=== PATIENT | female | born 1935 | race Caucasian/White ===

== ENCOUNTER 2018-07-30 09:28 | Inpatient (IN) ==
--- NOTE | 2018-07-30 09:53 | ED ---
HPI General Chief Complaint: Neuro Symptoms/Deficit Stated Complaint: neuro Time Seen by Provider: 07/30/18 09:34 Source: patient Mode of arrival: ambulatory Limitations: no limitations History of Present Illness HPI Narrative: The patient is a 82-year-old female who presents to the emergency department via private vehicle for dysarthria and difficulty reading. The states that they are from [place], [place], and are currently in area staying at a local hotel. The patient was last seen normal last night at 8 PM, she went to bed because she was "tired ". The states he woke up this morning the patient was in the shower, when she got out of the shower he noticed that the patient's speech was slightly slurred and she had difficulty getting words "out ". The patient also states that she has difficulty reading, has difficulty comprehending the words, no previous history of similar symptoms. The states the patient has slightly improved with her speech, however, it is still slow and slightly "garbled ". The patient does have a history of atrial fibrillation for which she takes aspirin, denies taking any other anticoagulants. Symptoms are moderate. The patient does have a history of hyperlipidemia, atrial fibrillation, but denies any known history of hypertension, diabetes, or tobacco use. Onset (ago): hour(s) Time: 10:05 Last Observed Normal: 20:00 Timing confirmed by: spouse Location: Reports speech and dysarthria History of same: No Severity: moderate Quality: Reports improving Relieving factors: none Exacerbating factors: none Context: Reports other On Anticoagulants: Yes (Aspirin) Associated symptoms: Reports other Treatments Prior to Arrival: Reports none Related Data Home Medications Medication Instructions Recorded Confirmed atorvastatin 40 mg PO QPM 07/30/18 07/30/18 carvedilol [Coreg] 6.25 mg PO BID 07/30/18 07/30/18 meloxicam [Mobic] 15 mg PO DAILY PRN 07/30/18 07/30/18 ranitidine HCl [Zantac] 150 mg PO DAILY PRN 07/30/18 07/30/18 rivaroxaban [Xarelto] 20 mg PO DAILY 07/30/18 07/30/18 Allergies Allergy/AdvReac Type Severity Reaction Status Date / Time azithromycin Allergy Hives Verified 07/30/18 09:39 Penicillins Allergy Hives Verified 07/30/18 09:39 Review of Systems ROS: all other systems reviewed are negative [facility] Social History Social History Substance History: No History of Abuse Smoking Status: Former smoker How Often Do You Have a Drink Containing Alcohol: 2 to 4 times a month Recent Out of Country Travel within the Last 8 Weeks: No Exam Narrative Exam Narrative: GENERAL: Awake, alert, pleasant 82-year-old female who appears her stated age and is in no acute respiratory distress. SKIN: Focused skin assessment warm/dry. HEAD: Atraumatic. Normocephalic. EYES: Pupils equal and round. 3 mm bilateral and reactive. EOMs are intact. Patient is wearing glasses. ENT: No nasal bleeding or discharge. Mucous membranes pink and moist. NECK: Trachea midline. No JVD. CARDIOVASCULAR: Regular rate and rhythm. No murmur appreciated. Heart rate in the 70s. RESPIRATORY: No accessory muscle use. Clear to auscultation. Breath sounds equal bilaterally. GASTROINTESTINAL: Abdomen soft, non-tender, nondistended. MUSCULOSKELETAL: No obvious deformities. No clubbing. No cyanosis. No edema. NEUROLOGICAL: Awake and alert. Smile is symmetric. EOMs are intact. Visual maldonado appear symmetric. Patient is able to see fingers at a distance of 2 feet without difficulty. No drift of the upper or lower extremities. Finger to nose is normal. Heel to [place] is normal. Sensation is symmetric on the face , arms, and legs. Mild dysarthria with slow carroll of the patient speech, she was unable to read my badge. PSYCHIATRIC: Appropriate mood and affect; insight and judgment normal. Course Initial Documented Vital Signs Temperature 98.1 F 07/30/18 09:29 Pulse Rate 63 07/30/18 09:29 Respiratory Rate 17 07/30/18 09:29 Blood Pressure 190/73 H 07/30/18 09:29 Pulse Oximetry 93 L 07/30/18 09:29 Last Documented Vital Signs Temperature 98.1 F 07/30/18 09:29 Pulse Rate 54 L 07/30/18 11:00 Respiratory Rate 20 07/30/18 11:00 Blood Pressure 151/67 H 07/30/18 11:00 Pulse Oximetry 97 07/30/18 11:00 NIH Stroke Scale NIHSS Time Completed NIHSS Time Completed: 09:45 NIH Stroke Scale Level of Consciousness: 0-Alert Orientation Questions: 0-Answers both correct Responds to Commands: 0-Both tasks correct Gaze Eye Movement: 0-Horizontal movement WNL Visual Maldonado: 0-No visual field defect Facial Movement: 0-Normal Motor Functions Arm LEFT: 0-No drift Motor Functions Arm RIGHT: 0-No drift Motor Functions Leg LEFT: 0-No drift Motor Functions Leg RIGHT: 0-No drift Limb Ataxia: 0-No ataxia Sensory Loss: 0-No sensory loss Best Language: 1-Mild aphasia Articulation: 1-Mild dysarthia Extinction or Inattention Sensory: 0-Absent Total: 2 Medical Decision Making MDM Narrative Medical decision making narrative: IV was established, labs are drawn and sent, the patient was placed on cardiac telemetry monitoring and continuous pulse oximetry monitoring. A stroke alert was called, the patient is a wakeup, stroke scale was 2, but does have mild dysarthria and mild aphasia with difficulty getting words out. Therefore, I discussed the patient with Dr. Jain , the on-call neurologist, who agrees with CT and CTA of the head and neck. I also discussed the patient with interventional radiologist, Dr. Saucedo, the patient stroke scale is 2, we will hold on CT perfusion until CTA is performed to see if there is a large clot that can be treated by interventional radiology. CTA was negative for large clot, she still had mild dysarthria, however, the states it is slightly improving. The patient was previously on Eliquis, however, developed a UTI, was placed on antibiotics, and subsequently developed colitis with bleeding. The patient was then taken off of Eliquis at that time. The patient may need further anticoagulation for history of atrial fibrillation, which appears to be paroxysmal, she just apparently had a TIA/CVA. The patient will be admitted. The patient had a UTI , therefore, was administered Cipro as she has hives with penicillins. The patient was also administered aspirin. I discussed the findings with the family and patient at bedside. Medical Screen Exam Complete: Yes Emergency Medical Condition: Yes Differential Diagnosis Differential Diagnosis: Differential diagnosis includes CVA, TIA, intracranial hemorrhage, hypertensive urgency, hypertensive emergency, transient neurologic deficit. Lab Data Result diagrams: 07/30/18 09:50 07/30/18 09:50 Lab Results 07/30/18 07/30/18 07/30/18 Range/Units 09:50 09:50 09:50 WBC 6.7 (4.0-11.0) th/mm3 RBC 4.29 (4.00-5.30) mil/mm3 Hgb 13.0 (11.6-15.3) gm/dL POC Hgb (Calc) 12.9 (11.6-15.3) g/dL Hct 38.8 (35.0-46.0) % POC Hct 38.0 (35-46.0) % MCV 90.5 (80.0-100.0) fL MCH 30.3 (27.0-34.0) pg MCHC 33.5 (32.0-36.0) % RDW 14.6 (11.6-17.2) % Plt Count 202 (150-450) th/mm3 MPV 7.8 (7.0-11.0) fL Neut % (Auto) 59.3 (16.0-70.0) % Lymph % (Auto) 29.2 (9.0-44.0) % [place] % (Auto) 7.7 (0.0-8.0) % Eos % (Auto) 3.5 (0.0-4.0) % Baso % (Auto) 0.3 (0.0-2.0) % Neut # (Auto) 4.0 (1.8-7.7) th/mm3 Lymph # (Auto) 2.0 (1.0-4.8) th/mm3 [place] # (Auto) 0.5 (0.0-0.9) th/mm3 Eos # (Auto) 0.2 (0.0-0.4) th/mm3 Baso # (Auto) 0.0 (0.0-0.2) th/mm3 WBC Differential . Differential Comment Auto diff final PT 10.7 (9.8-11.6) sec INR 1.1 Ratio APTT 25.2 (23.4-31.7) sec POC Sodium 145 H (137-144) mmol/L Sodium 144 (136-145) meq/L POC Potassium 3.8 (3.6-5.0) mmol/L Potassium 3.9 (3.5-5.1) meq/L POC Chloride 109 (102-111) mmol/L Chloride 112 H (98-107) meq/L Carbon Dioxide 23.2 (21.0-32.0) meq/L Anion Gap 9 (5-15) meq/L POC BUN 21 (5-21) mg/dL BUN 20 H (7-18) mg/dL Creatinine 0.65 (0.50-1.00) mg/dL POC Creatinine 0.6 (0.6-1.3) mg/dL Estimated GFR 88 L (>89) mL/min POC Glucose 128 H (68-110) mg/dL Random Glucose 121 H (74-106) mg/dL Calcium 9.4 (8.5-10.1) mg/dL Total Bilirubin 0.5 (0.2-1.0) mg/dL AST 14 L (15-37) U/L ALT 21 (10-53) U/L Alkaline Phosphatase 42 L (45-117) U/L Total Creatine Kinase 80 (26-192) U/L Troponin I Less than 0.02 L (0.02-0.05) ng/mL Total Protein 7.3 (6.4-8.2) g/dL Albumin 3.7 (3.4-5.0) g/dL Urine Color (Yellw/Straw) Urine Clarity (Clear) Urine pH (5.0-8.5) Ur Specific [place] (1.002-1.035) Urine Protein (Neg-Trace) mg/dL Urine Glucose (UA) (Negative) mg/dL Urine Ketones (Negative) mg/dL Urine Occult Blood (Negative) Urine Nitrate (Negative) Urine Bilirubin (Negative) Urine Urobilinogen (Less than 2) mg/dL Ur Leukocyte Esterase (Negative) Urine RBC (0-3) /hpf Urine WBC (0-5) /hpf Urine Bacteria (None) /hpf Hyaline Casts (0-3) /lpf Micro UA Comment Ur Microscopic Review Urine Culture Comments 07/30/18 Range/Units 11:27 WBC (4.0-11.0) th/mm3 RBC (4.00-5.30) mil/mm3 Hgb (11.6-15.3) gm/dL POC Hgb (Calc) (11.6-15.3) g/dL Hct (35.0-46.0) % POC Hct (35-46.0) % MCV (80.0-100.0) fL MCH (27.0-34.0) pg MCHC (32.0-36.0) % RDW (11.6-17.2) % Plt Count (150-450) th/mm3 MPV (7.0-11.0) fL Neut % (Auto) (16.0-70.0) % Lymph % (Auto) (9.0-44.0) % [place] % (Auto) (0.0-8.0) % Eos % (Auto) (0.0-4.0) % Baso % (Auto) (0.0-2.0) % Neut # (Auto) (1.8-7.7) th/mm3 Lymph # (Auto) (1.0-4.8) th/mm3 [place] # (Auto) (0.0-0.9) th/mm3 Eos # (Auto) (0.0-0.4) th/mm3 Baso # (Auto) (0.0-0.2) th/mm3 WBC Differential Differential Comment PT (9.8-11.6) sec INR Ratio APTT (23.4-31.7) sec POC Sodium (137-144) mmol/L Sodium (136-145) meq/L POC Potassium (3.6-5.0) mmol/L Potassium (3.5-5.1) meq/L POC Chloride (102-111) mmol/L Chloride (98-107) meq/L Carbon Dioxide (21.0-32.0) meq/L Anion Gap (5-15) meq/L POC BUN (5-21) mg/dL BUN (7-18) mg/dL Creatinine (0.50-1.00) mg/dL POC Creatinine (0.6-1.3) mg/dL Estimated GFR (>89) mL/min POC Glucose (68-110) mg/dL Random Glucose (74-106) mg/dL Calcium (8.5-10.1) mg/dL Total Bilirubin (0.2-1.0) mg/dL AST (15-37) U/L ALT (10-53) U/L Alkaline Phosphatase (45-117) U/L Total Creatine Kinase (26-192) U/L Troponin I (0.02-0.05) ng/mL Total Protein (6.4-8.2) g/dL Albumin (3.4-5.0) g/dL Urine Color Straw (Yellw/Straw) Urine Clarity Clear (Clear) Urine pH 7.0 (5.0-8.5) Ur Specific [place] 1.023 (1.002-1.035) Urine Protein Negative (Neg-Trace) mg/dL Urine Glucose (UA) Negative (Negative) mg/dL Urine Ketones Negative (Negative) mg/dL Urine Occult Blood Small H (Negative) Urine Nitrate Positive H (Negative) Urine Bilirubin Negative (Negative) Urine Urobilinogen Less than 2 (Less than 2) mg/dL Ur Leukocyte Esterase Large H (Negative) Urine RBC 2 (0-3) /hpf Urine WBC 38 H (0-5) /hpf Urine Bacteria Few H (None) /hpf Hyaline Casts 1 (0-3) /lpf Micro UA Comment Culture indicated Ur Microscopic Review Not Reportable Urine Culture Comments Culture indicated Imaging Data Radiologist's impression: Chest CT 07/30/18 00:00 CONCLUSION: 1. The lungs are clear. A few calcified granulomas are identified. 2. There is a small amount of air identified in the left brachiocephalic vein. Head CT 07/30/18 09:50 CONCLUSION: 1. Negative CT Head non contrast. Report was called by Dr. Villarreal to Dr. Collier at 10:10 AM on July 30, 2017.] Head CTA 07/30/18 09:50 CONCLUSION: 1. Patent intracranial circulation without evidence for aneurysm or high-grade stenosis. 2. 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 3. Thyroid nodules are described above. 4. Findings discussed with Dr. Jain at 10:30 AM on July 30, 2018. Neck CTA 07/30/18 09:50 CONCLUSION: 1. No evidence for high-grade stenosis. 2. 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 3. The findings were discussed with Dr. Jain at 10:30 AM on July 30, 2018. ECG Data EKG Prior to Arrival: No Attestation: I personally reviewed and interpreted this ECG as follows: Interpretation: EKG reveals sinus rhythm with first-degree AV block, KS interval [address] elevations or depressions noted. Discharge Plan Discharge Disposition Patient Disposition: ED Admit(ED Internal Use Only) Discharge Condition Condition: Stable Discharge Details Diagnosis: Acute CVA (cerebrovascular accident), Dysarthria Physicians Team ED Provider: Kalen Collier Primary Care Provider: UNKNOWN, Rxs /Orders / Referrals /Forms Prescriptions: No Action ranitidine HCl [Zantac] 150 mg Tablet 150 mg PO DAILY PRN (Reason: Heartburn) RF: 0 atorvastatin 40 mg Tablet 40 mg PO QPM RF: 0 carvedilol [Coreg] 6.25 mg Tablet 6.25 mg PO BID RF: 0 meloxicam [Mobic] 15 mg Tablet 15 mg PO DAILY PRN (Reason: Pain) RF: 0 rivaroxaban [Xarelto] 20 mg Tablet 20 mg PO DAILY RF: 0 Discharge Interventions Interventions: Vital Signs Last Done: 07/30/18 11:00 Status ED Status: Pending Admission
[2018-07-30 10:11] LABS: Baso % (Auto) 0.3 % (0.0-2.0); Eos # (Auto) 0.2 th/mm3 (0.0-0.4); Eos % (Auto) 3.5 % (0.0-4.0); Hematocrit 38.8 % (35.0-46.0); Lymph % (Auto) 29.2 % (9.0-44.0); Mean Corpuscular HGB Conc 33.5 % (32.0-36.0); Mean Corpuscular Hemoglobin 30.3 pg (27.0-34.0); Mean Corpuscular Volume 90.5 fL (80.0-100.0); Mean Platelet Volume 7.8 fL (7.0-11.0); Mono # (Auto) 0.5 th/mm3 (0.0-0.9); Mono % (Auto) 7.7 % (0.0-8.0); Neut % (Auto) 59.3 % (16.0-70.0); Platelet Count 202 th/mm3 (150-450); Red Blood Count 4.29 mil/mm3 (4.00-5.30); Red Cell Distribution Width 14.6 % (11.6-17.2); White Blood Count 6.7 th/mm3 (4.0-11.0)
--- NOTE | 2018-07-30 10:12 | CT ---
EXAM DATE: 07/30/2018 10:07 AM EST AGE/SEX: 82 years / Female INDICATIONS: Stroke alert, dysarthria, mild aphasia. CLINICAL DATA: This is the patient's initial encounter. Patient reports that signs and symptoms have been present for 1 day and indicates a pain score of Nonresponsive. MEDICAL/SURGICAL HISTORY: Non-responsive. Non-responsive. RADIATION DOSE: 37.58 CTDI (mGy) COMPARISON: No prior exams available for comparison. TECHNIQUE: CT of the head without contrast. Using automated exposure control and adjustment of the mA and/or kV according to patient size, radiation dose was kept as low as reasonably achievable to ob tain optimal diagnostic quality images. DICOM format image data is available electronically for revi ew and comparison. FINDINGS: Cerebrum: The ventricles are normal for age. No evidence of midline shift, mass lesion, hemorrhage or acute infarction. No extraaxial fluid collections are seen. Posterior Fossa: The cerebellum and brainstem are intact. The 4th ventricle is midline. The cerebe llopontine angle is unremarkable. Extracranial: The visualized portion of the orbits is intact. Skull: The calvaria is intact. No evidence of skull fracture. CONCLUSION: 1. Negative CT Head non contrast. Report was called by Dr. Villarreal to Dr. Collier at 10:10 AM on July 30, 2017.] Electronically signed by: Herbie Villarreal MD Board Certified Radiologist 07/30/2018 10:11 AM EST
[2018-07-30 10:18] LABS: Activated Partial Thrombo Time 25.2 sec (23.4-31.7); INR 1.1 Ratio; Prothrombin Time 10.7 sec (9.8-11.6)
[2018-07-30 10:23] LABS: Albumin 3.7 g/dL (3.4-5.0); Anion Gap 9 meq/L (5-15); Aspartate Aminotransferase 14 U/L (15-37); Blood Urea Nitrogen 20 mg/dL (7-18); Calcium 9.4 mg/dL (8.5-10.1); Carbon Dioxide 23.2 meq/L (21.0-32.0); Chloride 112 meq/L (98-107); Glomerular Filtration Rate 88 mL/min (>89); Glucose,Random 121 mg/dL (74-106); Potassium 3.9 meq/L (3.5-5.1); Sodium 144 meq/L (136-145)
[2018-07-30 10:24] LABS: Alanine Aminotransferase 21 U/L (10-53)
[2018-07-30 10:27] LABS: Alkaline Phosphatase 42 U/L (45-117); Total Protein 7.3 g/dL (6.4-8.2)
[2018-07-30 10:32] LABS: Creatine Kinase 80 U/L (26-192)
--- NOTE | 2018-07-30 10:35 | CT ---
EXAM DATE: 07/30/2018 10:24 AM EST AGE/SEX: 82 years / Female INDICATIONS: Stroke alert. Dysarthria. Mild aphasia. CLINICAL DATA: This is the patient's initial encounter. Patient reports that signs and symptoms have been present for 1 day and indicates a pain score of 0/10. MEDICAL/SURGICAL HISTORY: None. None. RADIATION DOSE: 26.20 CTDI (mGy) ; Combined studies COMPARISON: [facility] [place], CT HEAD W/O CONTRAST, 07/30/2018. . TECHNIQUE: Volumetric scanning was performed using a multi-row detector CT scanner during bolus infu sandoval of 100 ml Visipaque 320 (iodixanol) nonionic water-soluble contrast as a cumulative dose for mu ltiple exams. The data was post processed with a variety of visualization algorithms including full volume maximum intensity projection, multi-planar sliding thin slab reformation, curved planar refor mation, and surface rendering techniques. Using automated exposure control and adjustment of the mA and/or kV according to patient size, radiation dose was kept as low as reasonably achievable to obtai n optimal diagnostic quality images. DICOM format image data is available electronically for review and comparison. FINDINGS: There is excellent visualization of the major intracranial arteries out to the second-order branch ve ssels. There is no evidence for aneurysm, vessel truncation or stenosis, and no evidence for vascula r malformation. Bilateral thyroid nodules are noted including a hypodense 9.5 mm nodule on the right and an enhancing 7 mm nodule on the left. On axial image 66 of series 301.4 x 0.8 cm hyperdense circumscribed mass is present in the spinal can al posterior to C2 demonstrating mass effect on the spinal cord. This appears intradural and extramed ullary. I believe it is calcified. CONCLUSION: 1. Patent intracranial circulation without evidence for aneurysm or high-grade stenosis. 2. 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 3. Thyroid nodules are described above. 4. Findings discussed with Dr. Jain at 10:30 AM on July 30, 2018. Electronically signed by: Herbie Villarreal MD Board Certified Radiologist 07/30/2018 10:33 AM EST
--- NOTE | 2018-07-30 11:05 | CT ---
EXAM DATE: 07/30/2018 10:31 AM EST AGE/SEX: 82 years / Female INDICATIONS: Stroke alert. Dysarthria. Mild aphasia. CLINICAL DATA: This is the patient's initial encounter. Patient reports that signs and symptoms have been present for 1 day and indicates a pain score of 0/10. MEDICAL/SURGICAL HISTORY: None. None. RADIATION DOSE: 26.20 CTDI (mGy) ; Combined studies COMPARISON: No prior exams available for comparison. TECHNIQUE: Volumetric scanning was performed using a multirow detector CT scanner during bolus infus ion of 100 ml Visipaque 320 (iodixanol) nonionic water-soluble contrast as a cumulative dose for mul tiple exams. The data was postprocessed with a variety of visualization algorithms including full-v olume maximum intensity projection, multiplanar sliding thin-slab reformation, curved-planar reformat ion, and surface-rendering techniques. Using automated exposure control and adjustment of the mA and /or kV according to patient size, radiation dose was kept as low as reasonably achievable to obtain o ptimal diagnostic quality images. DICOM format image data is available electronically for review and comparison. Percent stenosis is calculated using the diameter of the stenotic region over the diameter of the nor mal distal internal carotid artery. FINDINGS: There is a hypodense subcentimeter right thyroid nodule, as well as a hyperdense left thyr oid nodule noted. There is a dense extra-axial mass in the spinal canal at the C2 level, incompletely evaluated on this study. Aortic Arch: There is a three-vessel origin of the great vessels from the aorta. No evidence of ost ial narrowing Right Carotid: The common carotid artery is intact. The carotid bulb has a normal configuration wit hout ulceration or narrowing. The internal carotid artery lumen is smooth without stenosis. The ext ernal carotid artery is intact. Left Carotid: The common carotid artery is intact. The carotid bulb has a normal configuration with out ulceration or narrowing. The internal carotid artery lumen is smooth without stenosis. The exte rnal carotid artery is intact. Vertebrals: The vertebral arteries have a symmetric diameter. No stenotic lesions are seen. CONCLUSION: 1. No evidence for high-grade stenosis. 2. 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 3. The findings were discussed with Dr. Jain at 10:30 AM on July 30, 2018. Electronically signed by: Herbie Villarreal MD Board Certified Radiologist 07/30/2018 11:04 AM EST
--- NOTE | 2018-07-30 11:36 | CT ---
EXAM DATE: 07/30/2018 11:19 AM EST AGE/SEX: 82 years / Female INDICATIONS: Evaluate for possible source of air seen on prior study. CLINICAL DATA: This is the patient's initial encounter. Patient reports that signs and symptoms have been present for 1 day and indicates a pain score of Nonresponsive. MEDICAL/SURGICAL HISTORY: Non-responsive. Non-responsive. RADIATION DOSE: 13.25 CTDI (mGy) COMPARISON: No prior exams available for comparison. TECHNIQUE: Multiple contiguous axial images were obtained through the chest without contrast. Image s were obtained in suspended respiration using multiple row detector helical technique. Using automa cameron exposure control and adjustment of the mA and/or kV according to patient size, radiation dose was kept as low as reasonably achievable to obtain optimal diagnostic quality images. DICOM format imag e data is available electronically for review and comparison. FINDINGS: There are mild dependent atelectatic changes seen. There are no effusions. There is a calcified granu julita in the right middle lobe present measuring 5 mm. There is a calcified granuloma in the right upp er lobe medially measuring 3.9 mm. There is a small amount of air in the left brachiocephalic vein pr esent. Atherosclerotic calcification of the aorta and coronary arteries. Calcified splenic granulomas and calcified subcentimeter subcarinal lymph node present. Osseous structures are intact. CONCLUSION: 1. The lungs are clear. A few calcified granulomas are identified. 2. There is a small amount of air identified in the left brachiocephalic vein. Electronically signed by: Herbie Villarreal MD Board Certified Radiologist 07/30/2018 11:34 AM EST
[2018-07-30 12:07] LABS: Bacteria,Urine Few /hpf; Bilirubin,Urine Negative (Negative); Clarity,Urine Clear (Clear); Color,Urine Straw (Yellw/Straw); Glucose,Urine (UA) Negative (Negative); Hyaline Casts,Urine 1 /lpf (0-3); Leukocyte Esterase,Urine Large (Negative); Nitrite,Urine Positive (Negative); Specific Gravity,Urine 1.023 (1.002-1.035)
[2018-07-30] MEDS ORDERED: Ciprofloxacin 400 MG/200 ML 400 MG/200 ML PIGGYBACK IV.SIG ONE (12:13)
[2018-07-30] MEDS ORDERED: Aspirin 325 MG Tablet PO ONE (12:13)
[2018-07-30] MEDS: Sod Chloride 0.9% Inj 1,000 ML IV.CONT SCH ×2 (13:45→20:56)
[2018-07-30] MEDS ORDERED: Famotidine 20 MG Tablet PO PRN (13:49)
--- NOTE | 2018-07-30 13:55 | P.HPIM ---
History of Present Illness Primary Care Physician: UNKNOWN Chief Complaint: Speech Difficulty History of Present Illness: Mrs. Burger is an 82 year old female. She is a past medical history of atrial fibrillation for which she is on Xarelto chronically for. Today she came in because she woke and noticed she was having difficulty speaking and reading. Symptoms have improved but are persisting. CT imaging shows no evidence of hemorrhage. Ischemic CVA is still suspected. Alternatively she has a urinary tract infection which could contribute to an encephalopathic type of picture, though confusion is not part of her current symptoms. No previous history of CVA. She does have a previous history of UTI and C. difficile colitis. Inpatient Certification Inpatient Certification: I certify that the inpatient services were ordered in accordance with Medicare regulations governing the order. This includes certification that hospital inpatient services are reasonable and necessary and in the case of services not specified as inpatient-only under 42 CFR 419.22(n), that they are appropriately provided as inpatient services in accordance to with the 2-midnight benchmark under 43 CFR 412.3(e) Estimated Total Length of Stay (Days): 3 Plans for Post Hospital Care: Home Review of Systems Constitutional: No fevers, no chills no night sweats, no fatigue, no weakness Eyes: No eye pain, no blurry vision, no loss of vision ENT: No sore throat, no ear pain, no rhinorrhea Cardiovascular: No chest pain, no tachycardia, no palpitations, no syncope Respiratory: No wheezing, no cough, no shortness of breath Gastrointestinal: No abdominal pain, no black tarry stools, no bright red blood per rectum, no vomiting, no diarrhea Musculoskeletal: No joint pain, no muscle cramps, no stiffness Integumentary: No rash, no ulcers, no drainage Neurologic: No sensory loss, no loss of motor function, no dizziness, dysarthria , aphasia Psychiatric: No behavioral changes, no hallucinations, no suicidal ideations PMFSH Family History Family History Other Osteoarthritis Social History Social History Substance History: No History of Abuse Smoking Status: Former smoker How Often Do You Have a Drink Containing Alcohol: 2 to 4 times a month Recent Out of Country Travel within the Last 8 Weeks: No Immunization History Tetanus Immunization: Unsure Medications and Allergies Allergies Allergy/AdvReac Type Severity Reaction Status Date / Time azithromycin Allergy Hives Verified 07/30/18 09:39 Penicillins Allergy Hives Verified 07/30/18 09:39 Home Medications Medication Instructions Recorded Confirmed Type atorvastatin 40 mg PO QPM 07/30/18 07/30/18 History carvedilol [Coreg] 6.25 mg PO BID 07/30/18 07/30/18 History meloxicam [Mobic] 15 mg PO DAILY PRN 07/30/18 07/30/18 History ranitidine HCl [Zantac] 150 mg PO DAILY PRN 07/30/18 07/30/18 History rivaroxaban [Xarelto] 20 mg PO DAILY 07/30/18 07/30/18 History Active Medications: Active Medications Acetaminophen (Tylenol) 650 mg PO Q4H PRN PRN Reason: Temp > 100.4 Al Hydroxide/Mg Hydroxide (Milk Of Javi Gallardo) 30 ml PO Q12H PRN PRN Reason: Mild Constipation Sodium Chloride (Ns Inj) 1,000 mls @ 70 mls/hr IV.CONT .[id number] GINA Last Admin: 07/30/18 13:45 Dose: 70 mls/hr Ondansetron HCl (Zofran Inj) 4 mg IV.PUSH Q6H PRN PRN Reason: NAUSEA OR VOMITING Sodium Chloride (Ns Flush) 2 ml IV.FLUSH BID [facility] Sodium Chloride (Ns Flush) 2 ml IV.FLUSH PRN PRN PRN Reason: FLUSH AFTER USING IV ACCESS Physical Exam Vital signs: Vital Signs 07/30/18 09:29 07/30/18 10:14 07/30/18 11:00 Temperature 98.1 F Pulse Rate 63 62 54 L Respiratory Rate 17 16 20 Blood Pressure 190/73 H 166/65 H 151/67 H Pulse Oximetry 93 L 98 97 Intake & Output 07/29/18 07/30/18 07/30/18 18:59 06:59 18:59 Intake Total 200 / 200 Balance 200 / 200 Weight 73.2 kg Intake: IV 200 / 200 Cipro 400 MG/200 ML Inj 400 mg 200 / 200 In 200 ml @ 200 mls/hr IV.SIG ONCE ONE Rx#:[id number] Narrative: GENERAL: NAD, A&Ox3 HEAD: Normocephalic. NECK: Supple, trachea midline. No lymphadenopathy. EYES: No scleral icterus. No injection or drainage. CARDIOVASCULAR: Regular rate and rhythm without murmurs, gallops, or rubs. RESPIRATORY: Breath sounds equal bilaterally. No accessory muscle use. GASTROINTESTINAL: Abdomen soft, non-tender, nondistended. MUSCULOSKELETAL: No cyanosis, or edema. SKIN: Warm and dry. NEURO: Dysarthria and aphasia of speech Results Labs CBC & Chem 7: 07/30/18 09:50 07/30/18 09:[address] 07/30/18 00:00 CONCLUSION: 1. The lungs are clear. A few calcified granulomas are identified. 2. There is a small amount of air identified in the left brachiocephalic vein. Head CT 07/30/18 09:50 CONCLUSION: 1. Negative CT Head non contrast. Report was called by Dr. Villarreal to Dr. Collier at 10:10 AM on July 30, 2017.] Head CTA 07/30/18 09:50 CONCLUSION: 1. Patent intracranial circulation without evidence for aneurysm or high-grade stenosis. 2. 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 3. Thyroid nodules are described above. 4. Findings discussed with Dr. Jain at 10:30 AM on July 30, 2018. Neck CTA 07/30/18 09:50 CONCLUSION: 1. No evidence for high-grade stenosis. 2. 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 3. The findings were discussed with Dr. Jain at 10:30 AM on July 30, 2018. Caprini VTE Risk Assessment Caprini VTE Risk Assessment: Moderate/High Risk (score >= 2) Caprini Risk Assessment Model: Point Value = 1 Point Value = 2 Point Value = 3 Point Value = 5 Age 41-60 Minor surgery BMI > 25 kg/m2 Swollen legs Varicose veins or History of unexplained or recurrent spontaneous Oral contraceptives or hormone replacement Sepsis (< 1 month) Serious lung disease, including pneumonia (< 1 month) Abnormal pulmonary function Acute myocardial infarction Congestive heart failure (< 1 month) History of inflammatory bowel disease Medical patient at bed rest Age 61-74 Arthroscopic surgery Major open surgery (> 45 min) Laparoscopic surgery (> 45 min) Malignancy Confined to bed (> 72 hours) Immobilizing plaster cast Central venous access Age >= 75 History of VTE Family history of VTE Factor V Leiden Prothrombin [id number] Lupus anticoagulant Anticardiolipin antibodies Elevated serum homocysteine Heparin-induced thrombocytopenia Other congenital or acquired thrombophilia Stroke (< 1 month) Elective arthroplasty Hip, pelvis, or leg fracture Acute spinal cord injury (< 1 month) Prophylaxis Regimen: Total Risk Factor Score Risk Level Prophylaxis Regimen 0-1 Low Early ambulation 2 Moderate Order ONE of the following: *Sequential Compression Device (SCD) *Heparin 5000 units SQ BID 3-4 Higher Order ONE of the following medications: *Heparin 5000 units SQ TID *Enoxaparin/Lovenox 40 mg SQ daily (WT < 150 kg, CrCl > 30 mL/min) *Enoxaparin/Lovenox 30 mg SQ daily (WT < 150 kg, CrCl > 10-29 mL/min) *Enoxaparin/Lovenox 30 mg SQ BID (WT < 150 kg, CrCl > 30 mL/min) AND/OR *Sequential Compression Device (SCD) 5 or more Highest Order ONE of the following medications: *Heparin 5000 units SQ TID (Preferred with Epidurals) *Enoxaparin/Lovenox 40 mg SQ daily (WT < 150 kg, CrCl > 30 mL/min) *Enoxaparin/Lovenox 30 mg SQ daily (WT < 150 kg, CrCl > 10-29 mL/min) *Enoxaparin/Lovenox 30 mg SQ BID (WT < 150 kg, CrCl > 30 mL/min) AND *Sequential Compression Device (SCD) Assessment and Plan Plan 82-year-old female admitted secondary to suspected acute CVA with dysarthria and aphasia of speech. Urinary tract infection present. Acute CVA Dysarthria Aphasia No hemorrhage on CT No evidence of mass on CT Obtain MRI Carotid ultrasound study Echocardiogram Neurology consulted Follow with neuro checks Continue speech therapy Permissive hypertension, hold Coreg Atrial fibrillation Continue Xarelto Follow on telemetry Coreg on hold for now Hyperlipidemia Continue present treatment Follow as an outpatient Gastroesophageal reflux disease continue ranitidine DVT prophylaxis Xarelto
--- NOTE | 2018-07-30 14:38 | MB ---
cc: Brenda Jain MD DATE: 07/30/2018 REASON FOR CONSULTATION: Stroke. HISTORY OF PRESENT ILLNESS: This is an 82-year-old woman with a history of atrial fibrillation, apparently on Xarelto chronically, who came in because she woke up having some trouble speaking and reading. Her symptoms are improved, but not at baseline. CT showed nothing acute. She is not deemed a candidate for TPA due to waking up with symptoms and being also on Xarelto. The patient denies any numbness or tingling or weakness on any side of the body. PAST MEDICAL HISTORY: As stated of atrial fibrillation, probably paroxysmal, on Xarelto. SOCIAL HISTORY: Retired. Does not smoke. Former smoker. Drinks a couple times a month, maybe. MEDICATIONS AT HOME: Refer to her MAR. PHYSICAL EXAMINATION: VITAL SIGNS: Temperature is 98.1, heart rate 54, blood pressure 151/67, saturating at 97% on 2 liters nasal cannula. NECK: Supple. She seems to be in sinus rhythm currently. NEUROLOGIC: She is awake and alert, follows commands. Her pupils are reactive. Visual daniel are full. Her face is symmetrical. She has trouble repeating certain phrases for me. She could name, but she seemed more slurred when she named an object such as stethoscope. She still has trouble coming up with words, so there may be some question of possible mixed aphasia. At this point, it is not very clear. She does not have any drift or leg lag. Cerebellar testing normal. Sensory is normal. Gait is withheld. LABORATORY DATA: Laboratory are reviewed. Her CBC is normal. Coagulation panel is normal. Chemistries: Sodium is 144, potassium 3.9. GFR is 88. Glucose 121. Troponin less than 0.02. Urine is positive for nitrites, 38 white cells. Culture is pending. IMAGING STUDIES: Neck CTA shows no high-grade stenosis, possible extramedullary mass at C2, calcified. Head CTA: No aneurysm or high-grade stenosis. Again, a possible hyperdense mass in the spinal canal at C2, calcified. There are some nodules on the thyroid on the right as well as on the left. CT brain was unremarkable. IMPRESSION: Possible stroke. Certainly concerning would be this mass. It may be a meningioma. Would recommend getting an MRI of the brain as well as an MRI of the cervical spine with and without contrast. Get also a carotid ultrasound and echocardiogram. Verify that she does take Xarelto. If she does not, why. In the meantime, certainly, she can be maintained on it. Check a lipid panel. Sequential compression devices, physical therapy, occupational therapy, speech therapy and depending on findings, further recommendations. MD KIRT Manrique/zehra , 02:16 PM , 02:24 PM
--- NOTE | 2018-07-30 15:48 | MR ---
EXAM DATE: 07/30/2018 3:25 PM EST AGE/SEX: 82 years / Female INDICATIONS: Slurred speech. CLINICAL DATA: This is the patient's initial encounter. Patient reports that signs and symptoms have been present for 1 day and indicates a pain score of 0/10. MEDICAL/SURGICAL HISTORY: . Afib Hysterectomy. Cholecystectomy. Fusion, cervical. right hip replacement, parotid gland removed, bladder tacking COMPARISON: [facility], CTA HEAD W CONTRAST W 3D, 07/30/2018. . TECHNIQUE: Multiplanar, multisequence examination of the brain was performed without contrast. FINDINGS: Cerebrum: There is mild generalized atrophy with ventricular size within normal limits given the degr ee of atrophy. No midline shift, mass lesion, or hemorrhage. There is mild decreased FLAIR/T2 signal in the posterior left temporal lobe and the left posterior insular region. These areas are associate d with restricted diffusion. No extraaxial fluid collections are seen. The pituitary gland and supr asellar cistern are normal in configuration. White Matter: No significant signal abnormalities are seen in the white matter. Posterior Fossa: The cerebellum and brainstem demonstrate no acute abnormality. The 4th ventricle is midline. The cerebellopontine angle is within normal limits. The cerebellar tonsils are normal in p osition. Diffusion Imaging: There is restricted diffusion in the posterior left temporal lobe and left infantry senior sergeant ior insular region. The temporal lobe abnormality measures approximately 2.9 cm in maximal dimension. Extracranial: The visualized sinuses are clear. There is a partially visualized and evaluated ovoid mass in the cervical spinal canal measuring 2.0 x 0.9 cm. CONCLUSION: 1. Findings are diagnostic of recent ischemia in the left posterior temporal lobe and left posterior insula. No blood products are seen. 2. Partially visualized and evaluated intradural mass within the cervical spinal canal posterior to C2. It measures approximately 2.0 x 0.9 cm. Electronically signed by: Reuben Robbins MD Board Certified Radiologist 07/30/2018 3:46 PM EST
--- NOTE | 2018-07-30 15:51 | MR ---
EXAM DATE: 07/30/2018 3:24 PM EST AGE/SEX: 82 years / Female INDICATIONS: Slurred speech. CLINICAL DATA: This is the patient's initial encounter. Patient reports that signs and symptoms have been present for 1 day and indicates a pain score of 0/10. MEDICAL/SURGICAL HISTORY: . Afib Fusion, cervical. Hysterectomy. Cholecystectomy. right hip replacement, parotid gland removed, bladder tacking [place] [facility] [place]. . TECHNIQUE: 3D [id number] MRA was performed. Source images, multiplanar STS MIP, and 3D volum e MIP reconstructions were reviewed. FINDINGS: Anterior circulation: The intracranial aspects of the internal carotid arteries demonstrate no signif icant abnormality. Proximal ophthalmic arteries are visualized bilaterally. Right A1 segment is sligh tly larger than the left but both are patent. Anterior cerebral arteries are symmetric and within nor mal limits. The proximal middle cerebral arteries bilaterally are symmetric. There is slightly decrea sed flow related enhancement within the peripheral/distal middle cerebral artery branches in the post erior sylvian fissure region. This is located directly adjacent to the area of ischemia. Posterior circulation: Vertebral arteries are codominant. Basilar artery is within normal limits with out stenosis or aneurysm. Posterior cerebral arteries are symmetric. CONCLUSION: Mildly decreased flow-related enhancement within the very peripheral left middle cerebral artery bran ches in the posterior sylvian fissure region adjacent to the location of recent ischemia. No large ve ssel central occlusion is identified. Electronically signed by: Reuben Robbins MD Board Certified Radiologist 07/30/2018 3:50 PM EST
[2018-07-30] MEDS ORDERED: Gadobutrol PF 7.5 MMOL/7.5 ML Vial (for RAD) IV.SIG ONE (15:57)
--- NOTE | 2018-07-30 16:40 | MR ---
EXAM DATE: 07/30/2018 4:06 PM EST AGE/SEX: 82 years / Female INDICATIONS: . Abnormal CT. CLINICAL DATA: This is the patient's sequela encounter. Patient reports that signs and symptoms have been present for > 1 year and indicates a pain score of 0/10. MEDICAL/SURGICAL HISTORY: . Afib Fusion, cervical. Cholecystectomy. Hysterectomy. right hip replacement, parotid gland removed, bladder tacking COMPARISON: [facility], CTA NECK W CONTRAST W 3D, 07/30/2018. . TECHNIQUE: Multiplanar, multisequence MRI examination of the cervical spine was performed without an d with 7.5 ml Gadavist (gadobutrol) contrast as a single exam dose. FINDINGS: Vertebrae: Anterior fusion plate C5-6. Alignment: Normal. Cord: Normal configuration and signal. Post Fossa: The cerebellar tonsils are normal in position. Post Contrast: Homogeneous enhancing oval-shaped mass is seen posterior to C2 noted within the spina l canal external to the cord. This measures 1.9 x 0.9 x 1.4 cm. This is dark on T1-weighted sequences and intermediate on T2-weighted sequences. This does efface the left aspect of the cord at C1/C2 lev el causing mild canal stenosis. C2-C3: The thecal sac has a normal configuration. There is no evidence of disc herniation or spinal canal stenosis. The neural foramina are patent bilaterally. C3-C4: The thecal sac has a normal configuration. There is no evidence of disc herniation or spinal canal stenosis. The neural foramina are patent bilaterally. C4-C5: The thecal sac has a normal configuration. There is no evidence of disc herniation or spinal canal stenosis. The neural foramina are patent bilaterally. C5-C6: Anterior fusion. The thecal sac has a normal configuration. There is no evidence of disc her niation or spinal canal stenosis. The neural foramina are patent bilaterally. C6-C7: Posterior disc osteophyte complex abuts the ventral thecal sac without canal stenosis. The n eural foramina are patent bilaterally. C7-T1: No epidural impressions seen. CONCLUSION: 1. Intradural/extramedullary mass at C1/C2 level most consistent with meningioma. This does efface t he left ventral cord and causes mild canal stenosis. No cord edema. 2. Anterior fusion C5-6. Electronically signed by: José Manuel Reese MD Board Certified Radiologist 07/30/2018 4:38 PM EST
[2018-07-30] MEDS: Lactobacillus Acidophilus/L. Spores Tablet PO SCH (17:52)
--- NOTE | 2018-07-30 19:26 | ECHRPT ---
Indication: CVA/TIA CONCLUSIONS Normal left ventricular size. Wall thickness is normal. The left ventricular systolic function is normal with an estimated ejection fraction in the range of 55-60%. Trace mitral valve regurgitation. Trace aortic valve regurgitation. Mild pulmonary valve regurgitation. BP: / HR: Rhythm: MEASUREMENTS (Male / Female) Normal Values Technical Quality:Fair 2D ECHO LV Diastolic Diameter PLAX 4.5 cm 4.2 - 5.9 / 3.9 - 5.3 cm LV Systolic Diameter PLAX 3.4 cm IVS Diastolic Thickness 0.9 cm 0.6 - 1.0 / 0.6 - 0.9 cm LVPW Diastolic Thickness 0.9 cm 0.6 - 1.0 / 0.6 - 0.9 cm LV Relative Wall Thickness 0.4 RV Internal Dim ED PLAX 2.9 cm LVOT Diameter 2.3 cm Aortic Root Diameter 3.3 cm LA Systolic Diameter LX 3.2 cm 3.0 - 4.0 / 2.7 - 3.8 cm DOPPLER AV Peak Velocity 97.7 cm/s AV Peak Gradient 3.8 mmHg AI Peak Velocity 354.0 cm/s AI Peak Gradient 50.1 mmHg AI Pressure Half Time 748.0 ms LVOT Peak Velocity 85.7 cm/s LVOT Peak Gradient 2.9 mmHg AV Area Cont Eq pk 3.6 cm Mitral E Point Velocity 74.8 cm/s Mitral A Point Velocity 80.2 cm/s Mitral E to A Ratio 0.9 LV E' Lateral Velocity 7.3 cm/s Mitral E to LV E' Lateral Ratio 10.2 LV E' Septal Velocity 6.8 cm/s Mitral E to LV E' Septal Ratio 11.0 TR Peak Velocity 216.0 cm/s TR Peak Gradient 18.7 mmHg Right Atrial Pressure 10.0 mmHg Pulmonary Artery Systolic Pressu 28.7 mmHg Right Ventricular Systolic Press 28.7 mmHg PV Peak Velocity 64.8 cm/s PV Peak Gradient 1.7 mmHg FINDINGS LEFT VENTRICLE Normal left ventricular size. Wall thickness is normal. The left ventricular systolic function is normal with an estimated ejection fraction in the range of 55-60%. RIGHT VENTRICLE Normal right ventricular size and systolic function. LEFT ATRIUM The left atrial size is normal. RIGHT ATRIUM The right atrial size is normal. ATRIAL SEPTUM Normal atrial septal thickness without atrial level shunting by limited color doppler interrogation. AORTA The aortic root and proximal ascending aorta are normal in size on limited imaging. MITRAL VALVE Trace mitral valve regurgitation. AORTIC VALVE Trileaflet aortic valve. Trace aortic valve regurgitation. TRICUSPID VALVE Structurally normal tricuspid valve. No tricuspid valve stenosis or regurgitation. PULMONARY VALVE Mild pulmonary valve regurgitation. VESSELS The inferior vena cava is normal in size. PERICARDIUM No pericardial effusion. Emre Lopez MD, FACC (Electronically Signed) Final Date:30 July 2018 19:26
[2018-07-30] MEDS: Acetaminophen 325 MG Tablet PO PRN (20:49)
--- NOTE | 2018-07-31 00:39 | ECG ---
Date Performed: 07/30/2018 Time Performed: 09:43:13 PTAGE: 82 years EKG: Sinus rhythm WITH FIRST DEGREE AV BLOCK ABNORMAL ECG NO PREVIOUS TRACING DOCTOR: Mars Bernabe Interpretating Date/Time 07/31/2018 00:37:01
[2018-07-31] MEDS: Acetaminophen 325 MG Tablet PO PRN ×2 (04:35→11:16)
[2018-07-31] MEDS: Sod Chloride 0.9% Inj 1,000 ML IV.CONT SCH (04:36)
[2018-07-31] MEDS: Lactobacillus Acidophilus/L. Spores Tablet PO SCH ×2 (08:35→12:26)
[2018-07-31] MEDS ORDERED: Rivaroxaban 20 MG Tablet PO SCH (09:00)
--- NOTE | 2018-07-31 09:26 | P.PNIM ---
Subjective Interval history: f/u; CVA in no acute distress. resting comfortably. slurred speech has much improved although she says that ' she's still having a problem with finding words'. Physical Exam Vital signs: Vital Signs 07/30/18 09:29 07/30/18 10:14 07/30/18 11:00 Temperature 98.1 F Pulse Rate 63 62 54 L Respiratory Rate 17 16 20 Blood Pressure 190/73 H 166/65 H 151/67 H Pulse Oximetry 93 L 98 97 07/30/18 20:00 07/30/18 21:50 07/30/18 22:30 Temperature 98.4 F Pulse Rate 64 54 L Respiratory Rate 17 16 Blood Pressure 117/58 L Pulse Oximetry 95 07/31/18 00:00 07/31/18 04:00 07/31/18 05:54 Temperature 98.2 F 97.8 F Pulse Rate 57 L 57 L Respiratory Rate 18 19 16 Blood Pressure 112/55 L 122/53 L Pulse Oximetry 95 95 07/31/18 08:29 Temperature Pulse Rate Respiratory Rate 16 Blood Pressure Pulse Oximetry Intake & Output 07/30/18 07/31/18 07/31/18 18:59 06:59 18:59 Intake Total 200 / 200 1000 / 1000 Balance 200 / 200 1000 / 1000 Weight 73.2 kg 73.2 kg Intake: IV 200 / 200 1000 / 1000 NS Inj 1,000 ML @ 70 mls/hr IV. 1000 / 1000 CONT .[id number] PENDING SALE TO [facility] Rx#:[id number] Cipro 400 MG/200 ML Inj 400 mg 200 / 200 In 200 ml @ 200 mls/hr IV.SIG ONCE ONE Rx#:[id number] Other: # Voids 2 Constitutional no acute distress Routine Respiratory Exam Present CTA bilaterally Routine Cardiovascular Exam Present RRR Routine Abdominal Exam Present soft Routine Extremities Exam Comments: no pedal edema. Routine Neurological Exam Present alert and oriented X3 Results Labs CBC & Chem 7: 07/30/18 09:50 07/30/18 09:50 Imaging Imaging: Impressions Cervical Spine MRI 07/30/18 00:00 CONCLUSION: 1. Intradural/extramedullary mass at C1/C2 level most consistent with meningioma. This does efface the left ventral cord and causes mild canal stenosis. No cord edema. 2. Anterior fusion C5-6. Chest CT 07/30/18 00:00 CONCLUSION: 1. The lungs are clear. A few calcified granulomas are identified. 2. There is a small amount of air identified in the left brachiocephalic vein. Head MRI 07/30/18 00:00 CONCLUSION: 1. Findings are diagnostic of recent ischemia in the left posterior temporal lobe and left posterior insula. No blood products are seen. 2. Partially visualized and evaluated intradural mass within the cervical spinal canal posterior to C2. It measures approximately 2.0 x 0.9 cm. Head MRA 07/30/18 00:00 CONCLUSION: Mildly decreased flow-related enhancement within the very peripheral left middle cerebral artery branches in the posterior sylvian fissure region adjacent to the location of recent ischemia. No large vessel central occlusion is identified. Head CT 07/30/18 09:50 CONCLUSION: 1. Negative CT Head non contrast. Report was called by Dr. Villarreal to Dr. Collier at 10:10 AM on July 30, 2017.] Head CTA 07/30/18 09:50 CONCLUSION: 1. Patent intracranial circulation without evidence for aneurysm or high-grade stenosis. 2. 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 3. Thyroid nodules are described above. 4. Findings discussed with Dr. Jain at 10:30 AM on July 30, 2018. Neck CTA 07/30/18 09:50 CONCLUSION: 1. No evidence for high-grade stenosis. 2. 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 3. The findings were discussed with Dr. Jain at 10:30 AM on July 30, 2018. Assessment and Plan Plan A/P Acute CVA cervical spine meningioma Neurology consulted Follow with neuro checks Continue speech therapy Permissive hypertension, hold Coreg patient is being followed up by her neurosurgery ( regarding her meningioma) in [place]. consulted PT/ST. Atrial fibrillation Continue Xarelto Follow on telemetry Coreg on hold for now Hyperlipidemia Continue present treatment Follow as an outpatient Gastroesophageal reflux disease continue ranitidine DVT prophylaxis Xarelto Discharge Planning: when cleared by neurology. Progress Note: Quality VTE Deep Vein Thrombosis/Pulmonary Embolism Present on Admission: No
[2018-07-31 10:53] VITALS: O2SAT 98
[2018-07-31 12:15] VITALS: BP 141/64; RESP 20; TEMP 98.3
[2018-07-31 12:29] VITALS: PULSE 61
== END 2018-07-31 16:38 | disposition home or self-care (01) | DRG 65 ==
LOC: NEPE 09:28 → NEDA 12:48 → N05 16:56
PROVIDERS: ADMIT Internal Medicine; ATTEND Internal Medicine
CPT/HCPCS: 70450; 70496; 70498; 70544; 70551; 71250; 72156; 80048; 80053; 81001; 82550; 84484; 85025; 85610; 85730; 86077; 86850; 86870; 86900; 86901; 86920; 86921; 86922; 87077; 87086; 87186; 92523; 93005; 93306; 97161; A9585; J0744; J7030; Q9967